=== PATIENT | male | born 1935 | race Caucasian/White ===

== ENCOUNTER → 2017-02-02 | Outpatient (CLI) | payer MEDICARE ==
--- NOTE | 2017-02-02 09:22 | US ---
EXAMINATION TYPE: US carotid duplex BILAT DATE OF EXAM: 02/02/2017 COMPARISON: US 2010 CLINICAL HISTORY: I65.21 occulsion/stenosis of rt carotid artery. Stenosis EXAM MEASUREMENTS: RIGHT: Peak Systolic Velocity (PSV) cm/sec ----- Right CCA: 82.3 ----- Right ICA: 88.7 ----- Right ECA: 101.9 ICA/CCA ratio: 1.1 RIGHT: End Diastole cm/sec ----- Right CCA: 22.8 ----- Right ICA: 21.6 ----- Right ECA: 10.6 LEFT: Peak Systolic Velocity (PSV) cm/sec ----- Left CCA: 108.1 ----- Left ICA: 88.4 ----- Left ECA: 122.3 ICA/CCA ratio: 0.8 LEFT: End Diastole cm/sec ----- Left CCA: 30.5 ----- Left ICA: 34.7 ----- Left ECA: 13.6 VERTEBRALS (direction of flow): Right Vertebral: Antegrade Left Vertebral: Antegrade Rhythm: Normal No elevated velocities, no significant stenosis. IMPRESSION: Redemonstration of moderate bilateral atheromatous plaquing without hemodynamically sign ificant stenosis of either carotid system.
--- NOTE | 2017-02-02 11:35 | ECHOS ---
STRESS ECHOCARDIOGRAM DATE OF SERVICE:: 02/02/2017. INDICATIONS: Chest pain. MEDICATIONS: Losartan, omeprazole. BASELINE HEART RATE: 69 BASELINE BLOOD PRESSURE: 114/60 MAXIMUM HEART RATE: 128 MAXIMUM BLOOD PRESSURE: 154/67 85% MPHR: 120 100% MPHR: 141 METS: 7.5 MAXIMUM STAGE REACHED: 3 TOTAL EXERCISE TIME: 6:15 CLINICAL INFORMATION: STRESS DATA: Pretesting physical examination showed a heart rate of 69, pressure is 114/60 mmHg. Baseline EKG shows sinus mechanism. The patient exercised on the treadmill according to Parveen protocol for a total of 6 minutes and 15 seconds and achieved 7.5 METS. Max heart rate was 128 beats per minute, which is about 86% of maximum predicted heart rate. Maximum blood pressure was 154/67 mmHg. Clinically, the patient did not have any symptoms of chest pain or discomfort during the testing or in the recovery time. The EKG did not show any significant ST or T-wave abnormalities consistent with ischemia. Echocardiogram images from parasternal long axis view, parasternal short axis view, apical 4 chamber and apical 2 chamber views were obtained as the baseline images, at the peak of heart rate as well as on recovery and the echocardiogram images showed good augmentation in the left ventricular systolic function without any evidence of wall motion abnormalities consistent with ischemia. CONCLUSION: 1. Good exercise capacity. 2. Normal ECG in response to exercise. 3. Normal echocardiogram in response to exercise. 4. Essentially normal exercise echocardiogram for this gentleman. MMATIYAL / OSCARN: [id number] /
== END | disposition home or self-care (01) ==
LOC: RADUSMAIN 08:46
PROVIDERS: ATTEND Internal Medicine Geriatric Medicine
DX: I67.2 Cerebral atherosclerosis (principal); I20.9 Angina pectoris, unspecified
CPT/HCPCS: 93017; 93350; 93880

== ENCOUNTER → 2018-05-14 | Outpatient (CLI) | payer MEDICARE ==
--- NOTE | 2018-05-14 10:49 | US ---
EXAMINATION TYPE: US carotid duplex BILAT DATE OF EXAM: 05/14/2018 COMPARISON: US 2017 CLINICAL HISTORY: I65.23 Occlusion and stenosis of bilateral carotid. Dizziness EXAM MEASUREMENTS: RIGHT: Peak Systolic Velocity (PSV) cm/sec ----- Right CCA: 77.5 ----- Right ICA: 79.7 ----- Right ECA: 101.3 ICA/CCA ratio: 1.0 RIGHT: End Diastole cm/sec ----- Right CCA: 19.9 ----- Right ICA: 17.6 ----- Right ECA: 14.2 LEFT: Peak Systolic Velocity (PSV) cm/sec ----- Left CCA: 87.6 ----- Left ICA: 70.0 ----- Left ECA: 93.2 ICA/CCA ratio: 0.8 LEFT: End Diastole cm/sec ----- Left CCA: 22.8 ----- Left ICA: 28.2 ----- Left ECA: 15.4 VERTEBRALS (direction of flow): Right Vertebral: Antegrade Left Vertebral: Antegrade Rhythm: Normal IMPRESSION: Bilateral intimal thickening, minimal plaque bilateral bulb, no elevated velocities, no s ignificant stenosis. Criteria for Assigning % of Stenosis / Diameter reduction (Estimation based on the indirect measurements of the internal carotid artery velocities (ICA PSV). 1. Normal (no stenosis)=ICA PSV < 125 cm/s: ratio < 2.0: ICA EDV<40 cm/s. 2. Less than 50% stenosis=ICA PSV < 125 cm/s: ratio < 2.0: ICA EDV<40 cm/s. 3. 50 to 69% stenosis=ICA PSV of 125 to 230 cm/s: ration 2.0 ? 4.0: ICA EDV 40-100 cm/s. 4. Greater than 70% stenosis to near occlusion= ICA PSV > 230 cm/s: ratio > 4.0: ICA EDV > 100 cm/s. 5. Near occlusion= ICA PSV velocities may be low or undetectable: variable ratio and ICA EDV. 6. Total occlusion=unable to detect flow.
== END | disposition home or self-care (01) ==
LOC: RADUSWWP 10:13
PROVIDERS: ATTEND Internal Medicine Geriatric Medicine
DX: I65.23 Occlusion and stenosis of bilateral carotid arteries (principal)
CPT/HCPCS: 93880

== ENCOUNTER → 2022-05-23 | Outpatient (CLI) | payer MEDICARE ==
--- NOTE | 2022-05-23 15:35 | US ---
EXAMINATION TYPE: US carotid duplex BILAT DATE OF EXAM: 05/23/2022 COMPARISON: NONE CLINICAL HISTORY: H54.7 UNSPECIFIED VISUAL LOSS. TECHNIQUE: Carotid duplex ultrasound examination. Indirect Doppler criteria was utilized. FINDINGS: EXAM MEASUREMENTS: RIGHT: Peak Systolic Velocity (PSV) cm/sec ----- Right CCA: 86.4 ----- Right ICA: 109.5 ----- Right ECA: 106.6 ICA/CCA ratio: 1.3 RIGHT: End Diastole cm/sec ----- Right CCA: 22.6 ----- Right ICA: 21.5 ----- Right ECA: 14.0 LEFT: Peak Systolic Velocity (PSV) cm/sec ----- Left CCA: 118.5 ----- Left ICA: 102.6 ----- Left ECA: 13.8 ICA/CCA ratio: 0.9 LEFT: End Diastole cm/sec ----- Left CCA: 23.3 ----- Left ICA: 15.3 ----- Left ECA: 13.8 VERTEBRALS (direction of flow): Right Vertebral: Antegrade Left Vertebral: Antegrade Rhythm: Normal COP BREAKER NOTES: Mild atherosclerotic changes with no significant velocity elevations. IMPRESSION: No evidence for hemodynamically significant stenosis. Criteria for Assigning % of Stenosis / Diameter reduction (Estimation based on the indirect measurements of the internal carotid artery velocities (ICA PSV). 1. Normal (no stenosis)=ICA PSV < 125 cm/s: ratio < 2.0: ICA EDV<40 cm/s. 2. Less than 50% stenosis=ICA PSV < 125 cm/s: ratio < 2.0: ICA EDV<40 cm/s. 3. 50 to 69% stenosis=ICA PSV of 125 to 230 cm/s: ration 2.0 ? 4.0: ICA EDV 40-100 cm/s. 4. Greater than 70% stenosis to near occlusion= ICA PSV > 230 cm/s: ratio > 4.0: ICA EDV > 100 cm/s. 5. Near occlusion= ICA PSV velocities may be low or undetectable: variable ratio and ICA EDV. 6. Total occlusion=unable to detect flow.
== END | disposition home or self-care (01) ==
LOC: RADUSWWP 14:57
PROVIDERS: ATTEND Internal Medicine Geriatric Medicine
DX: H54.7 Unspecified visual loss (principal)
CPT/HCPCS: 93880